=== PATIENT | female | born 1995 | race Caucasian/White ===

== ENCOUNTER 2017-02-01 02:40 | Emergency (ER) | payer BC, SELFPAY ==
[2017-02-01 03:06] LABS: #Lymphocytes 1.3 thou/uL (1.20-3.40); #Monocytes 0.5 thou/uL (0.11-0.59); #Neutrophils 12.5 thou/uL (1.40-6.50); %Basophils 0.3 % (0.0-1.0); %Monocytes 3.4 % (0.0-10.0); %Neutrophils 87.3 % (42.0-75.0); Hemoglobin 14.3 g/dL (12.0-16.0); Mean Corpuscular HGB CONC 33.9 g/dL (32.0-36.0); Mean Corpuscular Hemoglobin 28.6 pg (27.0-31.0); Mean Corpuscular Volume 84.3 fl (81.0-99.0); Mean Platelet Volume 7.6 fL (7.4-10.4); Platelet Count 254 thou/uL (130-400); RBC Distribution Width 12.6 % (11.5-14.5); Red Blood Cell (RBC) Count 5.01 mill/uL (4.20-5.40); White Blood Cell (WBC) Count 14.4 thou/uL (4.8-10.8)
[2017-02-01 03:09] LABS: MDiff Complete? YES; Manual Diff?? NO
[2017-02-01 03:10] LABS: PLT Morphology Comment Appears Adequate; RBC Morphology Normal
[2017-02-01 03:24] LABS: ALT (SGPT) 21 U/L (8-55); AST (SGOT) 20 U/L (5-34); Albumin 4.5 g/dL (3.5-5.0); Alkaline Phosphatase 56 U/L (40-150); Anion Gap 21 mmol/L (10-20); BUN (Urea Nitrogen) 5 mg/dL (7.0-18.7); Bilirubin, Total 1.2 mg/dL (0.2-1.2); Calc. Creatinine Clearance 0 mL/min (70-130); Calcium 9.9 mg/dL (7.8-10.44); Carbon Dioxide 16 mmol/L (22-29); Chloride 102 mmol/L (98-107); Estimated GFR-MDRD Greater than 90; Globulin 4.2 g/dL (2.4-3.5); Glucose 111 mg/dL (70-105); Potassium 3.4 mmol/L (3.5-5.1); Protein, Total 8.7 g/dL (6.0-8.3); Sodium 136 mmol/L (136-145)
[2017-02-01] MEDS ORDERED: Promethazine HCl 25 MG/ML VIAL ONE ×2 (03:26→04:44)
[2017-02-01 04:35] LABS: Blood, Urine Trace (Negative); Clarity Clear (Clear); Glucose, Urine (Dipstick) Negative (Negative); Leukocyte Negative (Negative); Nitrite Negative (Negative); Protein, Urine (Dipstick) 30 mg/dL (Neg-Trace); pH, Urine 5.5 (5.0-9.0)
[2017-02-01 04:37] LABS: Bacteria/HPF None Seen HPF (None Seen); Bilirubin Negative (Negative); Icto Negative (Negative); Specific Gravity, Urine 1.027 (1.002-1.036); WBC/HPF None Seen HPF (0-3)
== END 2017-02-01 05:25 | disposition home or self-care (01) ==
LOC: NAV ERS 02:40
DX: O21.0 Mild hyperemesis gravidarum (principal); O99.281 Endocrine, nutritional and metabolic diseases complicating pregnancy, first trimester; E87.6 Hypokalemia; O99.341 Other mental disorders complicating pregnancy, first trimester; F32.9 Major depressive disorder, single episode, unspecified; F41.9 Anxiety disorder, unspecified; Z87.891 Personal history of nicotine dependence; Z3A.12 12 weeks gestation of pregnancy
CPT/HCPCS: 36415; 80053; 81003; 81015; 82150; 83690; 85025; 96361; 96374; 96376; J2550

== ENCOUNTER 2023-06-04 07:50 | Emergency (ER) | payer MEDICAID, MEDICARE, OTHER | END 2023-06-04 08:25 | disposition home or self-care (01) | LOC: NAV ERS 07:50 | DX: M72.2 Plantar fascial fibromatosis (principal); Z87.891 Personal history of nicotine dependence | CPT/HCPCS: 99283 ==